=== PATIENT | female | born 1945 | race Caucasian/White ===

== ENCOUNTER 2017-04-02 10:52 | Emergency (ER) | payer OTHER ==
--- NOTE | 2017-04-02 12:50 | EDPHY ---
HPI/HX/ROS/PE/MDM Narrative: CHIEF COMPLAINT: Head pressure, dizziness. HPI: This patient is a non-anticoagulated 71 y/o female complaining of head pressure and dizziness ongoing for the last 8 days. She had a concussion 4 months ago after she slipped and fell, striking her head on the ground. One week following this incident she had a CT which was negative for acute processes. She has seen her primary care provider twice since the incident. 8 or 9 days ago she began to note pressure in the front of her skull, sometimes radiating to the back of her head. Her vision feels "wobbly". She has been seeing a chiropractor for neck pain, and endorses some neck soreness today. She denies fever, nausea, vomiting, numbness or weakness in her extremities, or other associated symptoms. REVIEW OF SYSTEMS: Aside from elements discussed in the HPI, a comprehensive 10-point review of systems was reviewed and is negative. PMH: Hypothyroidism SOCIAL HISTORY: Retired. Lives in [place], [place]. Single. PHYSICAL EXAM: General:Patient is alert, in no acute distress. ENT:Eyes are normal to inspection. ENT inspection normal. Neck: Normal inspection. Full range of motion. Respiratory:No respiratory distress. Breath sounds normal bilaterally. Cardiovascular: Regular rate and rhythm. Strong peripheral pulses. Normal cap refill. Abdomen:The abdomen is nontender to palpation. There are no peritoneal signs. There are normal bowel sounds. Back: Normal to inspection. No tenderness to palpation. Skin: Normal color. No rash. Warm and dry. Extremities: Normal appearance. Full range of motion. Neuro: Oriented x3. Normal motor function. Normal sensory function. No pronator drift. ED Course: 71 y/o female with history of concussion four months ago presets with headache and dizziness. Exam unremarkable, she is neurologically intact. Plan for CT head to evaluate for acute processes. 13:[address] Roque, radiologist. CT negative for acute intracranial processes. Reassessed patient. Discussed imaging results. Plan to discharge home in good condition. Follow up and return precautions discussed. The patient is comfortable with this plan. - Data Points Imaging Results: Imaging Impressions Head CT 04/02/17 12:28 Impression: No acute intracranial findings. Findings discussed with Amrit Paige MD, 04/02/2017 at 13:08. Imaging: Discussed imaging studies w/ call center director Radiologist General Time Seen by Provider: 04/02/17 12:03 Initial Vital Signs: Initial Vital Signs Temperature (C) 36.6 C 04/02/17 11:01 Heart Rate 89 04/02/17 11:01 Respiratory Rate 16 04/02/17 11:01 Blood Pressure 136/95 H 04/02/17 11:01 O2 Sat (%) 96 04/02/17 11:01 O2 Delivery Mode Room Air Allergies/Adverse Reactions: No Known Allergies Allergy (Unverified 04/02/17 11:00) Home Medications: Medication Instructions Recorded [place] Thyroid Dose Unk 10/15/12 Departure - Departure Disposition: Home, Routine, Self-Care Clinical Impression: Headache Qualifiers: Headache type: unspecified Headache chronicity pattern: acute headache Intractability: not intractable Qualified Code(s): R51 - Headache Condition: Good Instructions: Acute Headache (ED) Additional Instructions: 1. Follow-up with your primary care physician for further evaluation. 2. Return to the emergency department for recurrence of headache, nausea, vomiting, numbness, weakness, neck pain, fever or other concerns. 3. Use Tylenol and/or ibuprofen as directed below. Adult Pain & Fever Control: We recommend Acetaminophen (Tylenol) and Ibuprofen (Motrin,Advil) for pain and fever control. When fever is high or pain severe, both drugs can be used at the same time, but at different intervals. Please note the time differences. Your dose is: Acetaminophen 650mg every 4 to 6 hours Ibuprofen 400mg every 6-8 hours with food Note: do not take Acetaminophen with Hydrocodone (Vicodin, Lortab) or Oxycodone (Percocet). These medications also contain Acetaminophen. No more than 3000mg of Acetaminophen should be taken in 24 hours (for an adult). Referrals: NONE *PRIMARY CARE P,. [Primary Care Provider] - As per Instructions Jenae Walters MD [[facility] [place]] - As per Instructions Report Scribed for: Amirt Paige Report Scribed by: Monica Saravia Date of Report: 04/02/17 Time of Report: 12:53 Physician Review and Approval Statement: Portions of this note were transcribed by an ED scribe. I personally performed the history, physical exam, and medical decision making; and confirm the accuracy of the information in the transcribed note.
[2017-04-02 13:46] VITALS: BP 144/89; PULSE 78; RESP 18; TEMP 98.1; O2SAT 97
== END 2017-04-02 13:45 | disposition home or self-care (01) ==
DX: R51 Headache (principal)